=== PATIENT | male | born 2000 | race Caucasian/White ===

== ENCOUNTER 2025-05-08 18:45 | Emergency (ER) | payer OTHER ==
[~2025-05-08] VITALS: Ht 175.3 cm; Wt 80.0 kg
[2025-05-08 18:57] VITALS: TEMP 36.8; O2SAT 98
[2025-05-08] MEDS: ACETAMINOPHEN 325MG TABLET PO ONE (21:12)
[2025-05-08] MEDS: IBUPROFEN 600MG TABLET PO ONE (23:14)
[2025-05-08] MEDS ORDERED: IBUP-1455 MT (23:49)
[2025-05-09 00:34] VITALS: BP 125/80; PULSE 77; RESP 14; O2SAT 98
== END 2025-05-09 00:37 ==
LOC: ER 18:45
DX: S60.221A Contusion of right hand, initial encounter (principal); W22.01XA Walked into wall, initial encounter; Y93.89 Activity, other specified; Y92.89 Other specified places as the place of occurrence of the external cause; Y99.8 Other external cause status
CPT/HCPCS: 29125; 73110; 73130; 99284